=== PATIENT | female | born 1945 | race Caucasian/White ===

== ENCOUNTER 2016-08-06 09:48 | Observation (INO) ==
--- NOTE | 2016-08-06 09:58 | Emergency Department Note ---
Disposition Clinical Impression: Frail elderly, Chest pain, Hyperlipidemia, Hypertension, Cerebrovascular disease, Near syncope, Renal insufficiency Disposition: Admitted As Inpatient Referrals: Kumar Rodriguez Jr, MD [Primary Care Provider] - Forms: ED Satisfaction Letter General Adult HPI - General Chief complaint: ED Syncope Stated complaint: "blacked out this am", CP Time Seen by Provider: 08/06/16 09:57 Source: patient Limitations: no limitations - History of Present Illness HPI Narrative: 70-year-old female reports emergency department with concerns for nearly passing out this morning. She was at the door getting her dog out and then nearly lost consciousness. The patient's been experiencing intermittent chest pain for the last 2 days. There is no history left arm or left jaw pain shortness of breath coughing up blood or leg swelling or pain. The patient does not describe sharp chest pain or pain associated with breathing or activity particularly. She has no personal history of malignancy or DVT or PE history of coronary disease or previous dysrhythmia. The patient takes aspirin but is otherwise not anticoagulated. There is no history of new onset back pain or significant abdominal pain. There has been no difficulty moving the arms or legs independently. No history of slurred speech seizure-like activity or headache. No fever or rash. No cough runny nose and ear pain or sore throat. The patient is not known to be diabetic. She had a remote CVA, she reports she recovered from this and has had no defect status post. The patient does have a history of hyperlipidemia and hypertension. She had remote cardiac testing in the but has not been evaluated since she reports Onset (ago): Just ESTHETICIAN SPA Pain Scale: 2 - Related Data Allergies Allergy/AdvReac Type Severity Reaction Status Date / Time No Known Allergies Allergy Verified 08/06/16 09:50 All systems ED: reviewed and negative except as stated. Past Medical History - Past Medical History Medical history: Reports: CVA, hyperlipidemia, hypertension Psychiatric history: Reports: anxiety, depression - Social History Smoking Status: Former smoker Smokeless Tobacco Status: No Alcohol use: Reports: none Drug use: Reports: none Physical Exam - General Limitations: no limitations General appearance: alert, in no apparent distress - Head Head exam: atraumatic, normocephalic, normal inspection - Eye Eye exam: Present: normal appearance, PERRL, EOMI. Absent: scleral icterus, conjunctival injection, miosis, mydriasis - ENT ENT exam: normal exam, normal oropharynx, mucous membranes moist, TM's normal bilaterally, normal external ear exam - Neck Neck exam: Present: normal inspection, full ROM, trachea midline - Chest Chest inspection: Present: symmetric chest wall rise. Absent: tenderness - Respiratory Respiratory exam: Present: normal lung sounds bilaterally. Absent: respiratory distress - Cardiovascular Cardiovascular exam: Present: regular rate, normal rhythm, normal heart sounds - Abdominal Exam Abdominal exam: Present: soft, Non-Tender, normal bowel sounds. Absent: tenderness, distention, guarding, rebound, rigidity, pulsatile mass - Extremities Exam Extremities exam: Present: normal inspection, full ROM, normal capillary refill. Absent: tenderness, pedal edema, joint swelling, calf tenderness - Expanded Lower Extremity Exam Lower leg exam: Absent: Homans' sign Neurovascular/Tendon exam: Absent: motor deficit, sensory deficit, tendon deficit, extremity cold to touch - Back Exam Back exam: Present: normal inspection, full ROM. Absent: tenderness, CVA tenderness (R), CVA tenderness (L), vertebral tenderness - Neurological Exam Neurological exam: Present: alert, oriented X3, CN II-XII intact. Absent: motor sensory deficit - Psychiatric Psychiatric exam: Present: normal affect, normal mood - Skin Skin exam: Present: warm, dry, intact, normal color. Absent: rash, cyanosis, diaphoresis, erythema, pallor, mottled Course Vital Signs Temperature 97.2 F L 08/06/16 09:50 Pulse Rate 76 08/06/16 09:50 Respiratory Rate 16 08/06/16 09:50 Blood Pressure 103/68 08/06/16 09:50 O2 Sat by Pulse Oximetry 95 08/06/16 09:50 Temperature 97.2 F L 08/06/16 09:50 Pulse Rate 76 08/06/16 09:50 Respiratory Rate 16 08/06/16 09:50 Blood Pressure 103/68 08/06/16 09:50 O2 Sat by Pulse Oximetry 95 08/06/16 09:50 Oxygen Delivery Oxygen Delivery Room Air Medical Decision Making - [facility] Narrative Medical decision making narrative: The patient is elderly, she has a history of hypertension, hyperlipidemia, and CVA, she is describing chest discomfort. The patient has not had any recent cardiac testing. Aspirin was given. The patient had a near syncopal event. Her EKG and cardiac enzymes are negative but her d-dimer is slightly elevated. Based on her symptomatology, chest pain and near syncope, and elevated d-dimer, age, and vascular risk factors, I thought it would be appropriate to consult the hospitalist for hospital observation. The patient is currently stable. IV fluids were given. - Lab Data Lab results reviewed: Yes I reviewed the patient's lab results. Result diagrams: 08/06/16 10:04 08/06/16 10:04 Lab Results 08/06/16 08/06/16 08/06/16 Range/Units 10:04 10:04 10:04 WBC 6.9 (4.3-11.1) K/mcL RBC 4.06 (3.82-4.97) M/mcL Hgb 13.1 (11.5-15.4) g/dL Hct 39.0 (35.3-44.9) % MCV 96.1 (83.0-100.0) fL MCH 32.3 (28.0-33.3) pg MCHC 33.6 (31.6-35.5) g/dL RDW 14.0 (11.5-14.5) % Plt Count 247 (140-400) K/mcL MPV 8.9 L (9.4-12.4) fL Immature Gran % 0.6 (0-4) % Seg Neutrophils % 52.4 % Lymphocytes % 34.3 % Monocytes % 7.2 % Eosinophils % 4.5 % Basophils % 1.0 % Neutrophils # 3.6 (1.6-8.9) K/mcL Lymphocytes # 2.4 (0.6-4.6) K/mcL Monocytes # 0.5 (0.0-1.3) K/mcL Eosinophils # 0.3 (0.0-0.6) K/mcL Basophils # 0.1 (0.0-0.2) K/mcL PT 11.1 (9.4-12.1) Seconds INR 1.0 APTT 26.4 (26.0-36.0) Seconds D-Dimer 595 H (0-500) ng/mLFEU Sodium 140 (136-145) mEq/L Potassium 3.9 (3.5-4.5) mEq/L Chloride 106 (98-109) mEq/L Carbon Dioxide 25 (19-29) mEq/L BUN 30 H (7-20) mg/dL Creatinine 1.60 H (0.57-1.11) mg/dL Est GFR ( Amer) 38 L (> 60) Est GFR (Non-Af Amer) 32 L (> 60) BUN/Creatinine Ratio 19 (6-26) Glucose 83 (70-99) mg/dL Calculated Osmolality 295 (280-300) Lactic Acid (0.5-2.2) mmol/L Calcium 9.6 (8.6-10.8) mg/dL Total Bilirubin 0.8 (0.2-1.2) mg/dL Direct Bilirubin 0.3 (0.0-0.5) mg/dL Indirect Bilirubin 0.5 (0.0-1.2) mg/dL AST 20 (5-34) Units/L ALT 25 (0-55) Units/L Alkaline Phosphatase 123 (38-126) Units/L Troponin I (0-0.03) ng/mL Serum Total Protein 6.8 (6.0-8.3) g/dL Albumin 3.7 (3.5-5.0) g/dL Globulin 3.1 (2.4-3.5) g/dL Albumin/Globulin Ratio 1.2 (1.1-2.2) 08/06/16 08/06/16 Range/Units 10:04 10:04 WBC (4.3-11.1) K/mcL RBC (3.82-4.97) M/mcL Hgb (11.5-15.4) g/dL Hct (35.3-44.9) % MCV (83.0-100.0) fL MCH (28.0-33.3) pg MCHC (31.6-35.5) g/dL RDW (11.5-14.5) % Plt Count (140-400) K/mcL MPV (9.4-12.4) fL Immature Gran % (0-4) % Seg Neutrophils % % Lymphocytes % % Monocytes % % Eosinophils % % Basophils % % Neutrophils # (1.6-8.9) K/mcL Lymphocytes # (0.6-4.6) K/mcL Monocytes # (0.0-1.3) K/mcL Eosinophils # (0.0-0.6) K/mcL Basophils # (0.0-0.2) K/mcL PT (9.4-12.1) Seconds INR APTT (26.0-36.0) Seconds D-Dimer (0-500) ng/mLFEU Sodium (136-145) mEq/L Potassium (3.5-4.5) mEq/L Chloride (98-109) mEq/L Carbon Dioxide (19-29) mEq/L BUN (7-20) mg/dL Creatinine (0.57-1.11) mg/dL Est GFR ( Amer) (> 60) Est GFR (Non-Af Amer) (> 60) BUN/Creatinine Ratio (6-26) Glucose (70-99) mg/dL Calculated Osmolality (280-300) Lactic Acid 0.9 (0.5-2.2) mmol/L Calcium (8.6-10.8) mg/dL Total Bilirubin (0.2-1.2) mg/dL Direct Bilirubin (0.0-0.5) mg/dL Indirect Bilirubin (0.0-1.2) mg/dL AST (5-34) Units/L ALT (0-55) Units/L Alkaline Phosphatase (38-126) Units/L Troponin I 0.00 (0-0.03) ng/mL Serum Total Protein (6.0-8.3) g/dL Albumin (3.5-5.0) g/dL Globulin (2.4-3.5) g/dL Albumin/Globulin Ratio (1.1-2.2) - Radiology Data Radiology results reviewed: Yes I reviewed the patient's radiology results.
[2016-08-06] MEDS ORDERED: 0.9 % Sodium Chloride 1,000 ML IVC ONE (09:59)
[2016-08-06 10:13] LABS: Basophils # 0.1 K/mcL (0.0-0.2); Eosinophils # 0.3 K/mcL (0.0-0.6); Eosinophils % 4.5 %; Hemoglobin 13.1 g/dL (11.5-15.4); Immature Granulocytes % 0.6 % (0-4); Lymphocytes # 2.4 K/mcL (0.6-4.6); Lymphocytes % 34.3 %; Mean Corpuscular HGB Conc 33.6 g/dL (31.6-35.5); Mean Corpuscular Hemoglobin 32.3 pg (28.0-33.3); Mean Corpuscular Volume 96.1 fL (83.0-100.0); Mean Platelet Volume 8.9 fL (9.4-12.4); Monocytes # 0.5 K/mcL (0.0-1.3); Monocytes % 7.2 %; Neutrophils # 3.6 K/mcL (1.6-8.9); Platelet Count 247 K/mcL (140-400); Red Blood Count 4.06 M/mcL (3.82-4.97); Segmented Neutrophils % 52.4 %
[2016-08-06 10:17] LABS: Prothrombin Time 11.1 Seconds (9.4-12.1)
[2016-08-06 10:20] LABS: Activated Partial Thrombo Time 26.4 Seconds (26.0-36.0)
[2016-08-06 10:29] LABS: Albumin 3.7 g/dL (3.5-5.0); Albumin/Globulin Ratio 1.2 (1.1-2.2); Bilirubin,Direct 0.3 mg/dL (0.0-0.5); Bilirubin,Indirect 0.5 mg/dL (0.0-1.2); Bilirubin,Total 0.8 mg/dL (0.2-1.2); Calcium 9.6 mg/dL (8.6-10.8); Globulin 3.1 g/dL (2.4-3.5); Potassium 3.9 mEq/L (3.5-4.5); Total Protein 6.8 g/dL (6.0-8.3)
[2016-08-06] MEDS ORDERED: Aspirin 325 MG TABLET PO ONE (10:50)
[2016-08-06 12:16] LABS: Bilirubin,Urine Negative (Negative); Blood,Urine Negative (Negative); Clarity,Urine Clear (Clear); Color,Urine Yellow (Yellow); Glucose,Urine (UA) Normal (Normal); Ketones,Urine Negative (Negative); Leukocyte Esterase,Urine Negative (Negative); Nitrite,Urine Negative (Negative); Protein,Urine Negative (Neg-Trace); Specific Gravity,Urine 1.008 (1.010-1.025); Urobilinogen,Urine Normal (Normal)
[2016-08-06] MEDS ORDERED: Naloxone 0.4 MG/ML INJ IVP PRN (12:59)
--- NOTE | 2016-08-06 13:22 | Internal Med History&Physical ---
<Tessa Mendieta M - Last Filed: 08/06/16 23:24> Date of Encounter: 08/06/16 Time of Encounter: 13:18 Assessment and Plan (1) Near syncope Current visit: Yes Status: Acute Patient describes episode this morning of blacking out this occurred when she got up from a sitting position to let the dog out. She describes it as everything going black but she did not fall. Head CT negative for acute abnormality, EKG showed normal sinus rhythm. 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 She denies any associated shortness of breath , palpitations, lightheadedness, radiation. He has risk factors that include hypertension, hyperlipidemia, and a prior CVA in 2008. Initial troponin -0.0, EKG showed normal sinus rhythm. 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 Previous value from March 2015 was 1.42. No other values available for comparison. Patient denies any known history of kidney problems, but with previous value of 1.4 to this may be a chronic issue. She takes losartan/hydrochlorothiazide for blood pressure control, she is also on meloxicam chronically for arthritis. We will hold these medications. Urinalysis with micro. Gentle hydration 0.9 normal saline at 75 mL per hour Recheck chemistry in the morning (4) Hyperlipidemia Current visit: Yes Status: Acute Continue home dose of Lipitor Qualifiers: Hyperlipidemia type: unspecified Qualified Code(s): E78.5 - Hyperlipidemia , unspecified (5) Hypertension Current visit: Yes Status: Acute Patient has been taking losartan/hydrochlorothiazide at home. However with creatinine of 1.6, will hold this. Patient is not hypertensive blood pressure has been 103/68 and 123/74. We will monitor vital signs and need for antihypertensive medication. Qualifiers: Hypertension type: essential hypertension Qualified Code(s): I10 - Essential (primary) hypertension (6) DVT prophylaxis Current visit: Yes Status: Acute ambulate with assistance anti-embolic stockings Heparin 5,000u SQ TID Internal Medicine - H&P: HPI Chief complaint: blacked out Admitted From: Emergency Dept Plans for Post Hospital Care: Home History of present illness: Ms. Thomas is a 70 year old female with hypertension, hyperlipidemia, acid reflux, and CVA in 2008% into the emergency department this morning after having an episode of "blacking out. She reports she felt fine this morning got up from sitting to let her dog back in and everything went black. She reports she caught herself on the table and did not fall. After the episode she developed a headache. She also reports occasional chest pain that comes and goes described as a dull ache for the last few days. The chest pain is located at the left side of her chest and does not radiate and is not associated with activity or rest. She denies any recent illness fever or chills, sweats, body aches. She denies any other episodes of lightheadedness, dizziness, faint. Has any palpitations, nausea, vomiting. Evaluation in the emergency department included a CT of the head which was negative for acute intracranial abnormality. EKG showed normal sinus rhythm, chest x-ray showed no acute process. Troponin was negative at 0.0. Blood cell count was normal at 6.9. She had acute kidney injury with creatinine of 1.6 previous creatinine noted in the system in March 2015 was 1.42 she may have an underlying chronic kidney disease but patient denies any awareness of kidney problems. On exam, patient is alert and oriented in no acute distress. Heart has regular rate and rhythm, lungs are clear bilaterally to auscultation. Cranial nerves are intact, she has equal strength bilaterally, no pronator drift, fluid speech. Past Med Surg Social Fam HX - Past Medical History Medical history: CVA, GERD, hyperlipidemia, hypertension Psychiatric history: anxiety, depression - Past Surgical History Surgical History: breast surgery (abscess), , hysterectomy, other ( bladder surgery x 3) - Social History Smoking Status: Former smoker Smokeless Tobacco Status: No Alcohol use: none Drug use: none Internal Medicine - H&P: Meds Alprazolam [Xanax 0.5 MG Tablet] 0.5 mg PO TID PRN 08/06/16 [History] Aspirin [Lo-Dose Aspirin EC] 81 mg PO HS 08/06/16 [History] Atorvastatin [Lipitor] 40 mg PO HS 08/06/16 [History] Citalopram Hydrobromide [Citalopram HBr] 40 mg PO HS 08/06/16 [History] Loratadine [Allergy Relief] 10 mg PO 08/06/16 [History] Losartan/Hydrochlorothiazide [Hyzaar 100-12.5 Tablet] 1 tab PO HS 08/06/16 [ History] Meloxicam [Meloxicam] 15 mg PO HS 08/06/16 [History] Omeprazole [PriLOSEC] 20 mg PO QAM 08/06/16 [History] Trimethoprim [Trimethoprim] 100 mg PO HS 08/06/16 [History] Allergies No Known Allergies Allergy (Verified 08/06/16 09:50) All Systems PM: A 10-system review of systems was performed and is negative for pertinent findings except as documented above in the HPI. - Constitutional Constitutional: no chills, no fever(s), no night sweats - EENT Eyes: no change in vision, no discharge, no pain, no photophobia Ears: no ear discharge, no ear pain, no tinnitus Nose, mouth and throat: no dysphagia, no nasal discharge, no neck pain, no sore throat - Cardiovascular Cardiovascular ROS IM: syncope, no chest pain, no diaphoresis, no dyspnea, no lightheadedness, no palpitations - Respiratory Respiratory: no cough, no dyspnea, no wheezing, no excessive phlegm production - Gastrointestinal Gastrointestinal: no abdominal pain, no diarrhea, no hematemesis, no hematochezia, no melena, no nausea, no vomiting - Genitourinary Genitourinary: urinary incontinence (chronic), no change in urinary stream, no dysuria, no flank pain, no hematuria - Musculoskeletal Musculoskeletal ROS IM: no numbness, no tingling - Integumentary Integumentary IM: no rash, no unusual bruising - Neurological Neurological ROS: headache(s), no confusion, no convulsions, no focal weakness, no numbness, no tingling, no tremor(s) - Hematologic/Lymphatic Hematologic/Lymphatic: no easy bruising - Constitutional Vitals: Temp Pulse Resp BP Pulse Ox 97.2 F L 59 18 123/74 96 08/06/16 09:50 08/06/16 12:16 08/06/16 12:16 08/06/16 12:16 08/06/16 12:16 General appearance: Present: A&O X 3, no acute distress - Head Head exam: Present: atraumatic, normocephalic - Eye Eye exam: Present: PERRL, conjuntiva pink, sclera anicteric Pupils: Present: PERRL - Neck Neck exam general surgery: Present: supple, trachea midline. Absent: lymphadenopathy - Respiratory Respiratory exam: Present: CTAB. Absent: accessory muscle use, rales, rhonchi, wheezes - Cardiovascular Cardiovascular exam: Present: RRR, +S1, +S2. Absent: diastolic murmur, gallop, rubs, systolic murmur - GI/Abdominal GI/Abdominal exam: Present: normal bowel sounds, soft, no peritoneal signs. Absent: distended, tenderness - Extremities Exam Extremities exam: Present: warm, radial pulses palpable and symetrical. Absent : calf tenderness, cyanotic, pedal edema - Neurological Exam Neurological exam: Present: CN II-XII intact, oriented X3, no focal deficits. Absent: pronater drift, facial droop, speech deficit - Skin Skin exam: Present: dry, intact Internal Med - H&P Results - Labs CBC & Chem 7: 08/06/16 10:04 08/06/16 10:04 Labs: Short CBC 08/06/16 Range/Units 10:04 WBC 6.9 (4.3-11.1) K/mcL Hgb 13.1 (11.5-15.4) g/dL Hct 39.0 (35.3-44.9) % Plt Count 247 (140-400) K/mcL Neutrophils # 3.6 (1.6-8.9) K/mcL BMP 08/06/16 10:04 Sodium 140 Potassium 3.9 Chloride 106 Carbon Dioxide 25 BUN 30 H Creatinine 1.60 H Glucose 83 Calcium 9.6 Cardiac Enzymes 08/06/16 Range/Units 10:04 Troponin I 0.00 (0-0.03) ng/mL Liver Function 08/06/16 Range/Units 10:04 Total Bilirubin 0.8 (0.2-1.2) mg/dL Direct Bilirubin 0.3 (0.0-0.5) mg/dL AST 20 (5-34) Units/L ALT 25 (0-55) Units/L Alkaline Phosphatase 123 (38-126) Units/L Albumin 3.7 (3.5-5.0) g/dL Urine 08/06/16 Range/Units 11:55 Urine Color Yellow (Yellow) Urine Clarity Clear (Clear) Urine pH 6.0 (5.0-8.0) pH Units Ur Specific [place] 1.008 L (1.010-1.025) Urine Protein Negative (Neg-Trace) mg/dL Urine Glucose (UA) Normal (Normal) mg/dL - Impressions ITS Impressions Chest X-Ray 08/06/16 10:00 IMPRESSION: No acute process. D/ / Yovani Olson MD / Yovani Olson MD Interpreting Provider: Yovani Olson MD Head CT 08/06/16 10:00 IMPRESSION: No acute intracranial abnormality. D/ / Master Jolly MD / Master Jolly MD Interpreting Provider: Master Jolly MD <Carl Gibson - Last Filed: 08/07/16 08:11> Date of Encounter: 08/07/16 Internal Medicine - H&P: HPI History of present illness: Ms. Thomas is a 71 year old female All Systems PM: A 10-system review of systems was performed and is negative for pertinent findings except as documented above in the HPI. - Constitutional Vitals: Temp Pulse Resp BP Pulse Ox 98.1 F 68 18 108/67 99 08/07/16 07:25 08/07/16 07:25 08/07/16 07:25 08/07/16 07:25 08/07/16 07:25 Internal Med - H&P Results - Labs CBC & Chem 7: 08/06/16 10:04 08/06/16 10:04 Labs: Cardiac Enzymes 08/06/16 08/06/16 Range/Units 16:20 22:01 Troponin I 0.00 0.00 (0-0.03) ng/mL - Attending Attestation I examined this patient and my medical decision-making was reviewed with the Advanced Practice Provider. I agree with the documented findings, disposition and treatment plan as described except to the extent set forth below. On exam she is in no acute distress, speaking full sentences, awake alert oriented 3. Heart is regular S1 and S2 without murmurs. I suspect orthostatic hypotension secondary to antihypertensive medication and dehydration. We will monitor the patient on telemetry. Will provide IV hydration and reassess orthostatic vital signs. Trend troponin to rule out ACS.
[2016-08-06] MEDS: *HR* Heparin 5,000 UNIT/ML VIAL SQ SCH ×2 (15:27→22:44)
[2016-08-06] MEDS: 0.9 % Sodium Chloride 1,000 ML IVC SCH (15:28)
[2016-08-06] MEDS: Aspirin Enteric Coated 81 MG Tablet PO SCH (20:44)
[2016-08-06] MEDS: Loratadine 10 MG TABLET PO SCH (20:45)
[2016-08-06] MEDS: ALPRAZolam 0.5 MG TABLET PO PRN (22:44)
[2016-08-07] MEDS: *HR* Heparin 5,000 UNIT/ML VIAL SQ SCH ×3 (06:04→23:24)
[2016-08-07] MEDS: 0.9 % Sodium Chloride 1,000 ML IVC SCH (06:04)
[2016-08-07 08:07] LABS: Basophils # 0.1 K/mcL (0.0-0.2); Basophils % 0.9 %; Eosinophils # 0.3 K/mcL (0.0-0.6); Eosinophils % 5.1 %; Hematocrit 33.1 % (35.3-44.9); Immature Granulocytes % 0.2 % (0-4); Lymphocytes # 2.2 K/mcL (0.6-4.6); Mean Corpuscular HGB Conc 33.2 g/dL (31.6-35.5); Mean Corpuscular Hemoglobin 32.4 pg (28.0-33.3); Mean Corpuscular Volume 97.6 fL (83.0-100.0); Mean Platelet Volume 9.3 fL (9.4-12.4); Monocytes # 0.3 K/mcL (0.0-1.3); Monocytes % 6.3 %; Neutrophils # 2.4 K/mcL (1.6-8.9); Platelet Count 180 K/mcL (140-400); Red Blood Count 3.39 M/mcL (3.82-4.97); Red Cell Distribution Width 13.8 % (11.5-14.5); Segmented Neutrophils % 45.5 %
[2016-08-07 08:12] LABS: Potassium 4.2 mEq/L (3.5-4.5)
[2016-08-07 08:13] LABS: Calcium 8.6 mg/dL (8.6-10.8)
--- NOTE | 2016-08-07 12:38 | ECHO - Doppler Report ---
Echocardiogram Name: Jacinta Thomas Date of Study: 08/07/2016 Date: 1945 Ht: 65.0 in Medical Record#: [id number] Age: 71 Wt: 170.0 lb Gender: Female BSA: 1.85 Order #: [id number] Location: [facility] Room #: [id number] Reading Physician: Yennifer Cervantes DO [employer] Manager: Amy Ramírez Ordering Physician: Tessa Mendieta CNP Primary Physician: Kumar Rodriguez MD Indications: Syncope Impressions: LVEF 60-65%. Normal left ventricular size and systolic function. There is evidence of mild diastolic dysfunction of the left ventricle. Normal right ventricular size and function. Mild tricuspid regurgitation. No pulmonary hypertension. Left Ventricular Wall Motion: Rest Echo Findings All wall segments showed normal motion. Findings: Study Quality * Technically adequate exam. ECG Findings * Normal sinus rhythm. Left Ventricle * LVEF 60-65%. * Normal LV chamber size, wall thickness and function. * Mild left ventricular diastolic dysfunction. Left Atrium * Normal left atrial size. Mitral Valve * Normal mitral valve structure. * No mitral stenosis. * Trace mitral regurgitation. Aortic Valve * Aortic valve not well visualized. * No aortic stenosis. * Trace aortic regurgitation. Tricuspid Valve * Tricuspid valve not well visualized. * Mild tricuspid regurgitation. Pulmonic Valve * Pulmonic valve is not well visualized. * No pulmonic stenosis. * No pulmonic regurgitation. Pulmonary Artery * Pulmonary artery not well visualized. Right Ventricle * Normal right ventricular structure and function. Right Atrium * Normal right atrial size. Interatrial Septum * No evidence of PFO by color Doppler. IVC * The IVC is not well evaluated. Pericardium * There is no pericardial effusion present. History Hypertension Hypercholesteremia Years 20 Packs 2 Measurements: BP: 98/ 62 2D Normal Values IVSd: 1.00 cm 0.6 - 1.0 cm LVIDd: 4.30 cm 3.7 - 5.6 cm LVPWd: 1.00 cm 0.6 - 1.1 cm LVIDs: 2.40 cm 1.5 - 3.6 cm AO: 2.60 cm < 4.0 cm LA: 3.90 cm 2.0 - 4.0cm %FS: 44.20 cm >25 % LA volume: 45 Mitral Valve Peak E:.62 m/sec Peak A:.77 m/sec E/A Ratio:0.8 Peak E' Lat Sawyer:6.82 cm/s Peak E' Med Sawyer:6.14 cm/s E/E' Lat Ratio:9 E/E' Med Ratio:10 Aortic Valve AI pressure Half-time: 935.00 msec Tricuspid Valve TV Regurg Peak Grad: 21.00mmHg TV Regurg Peak Sawyer: 2.28m/sec Updated by Yennifer Cervantes on 08/07/2016 12:30:04 PM electronically signed on 08/07/2016 12:31:46 PM with status of Final Wall [employer] Jeffries: 1=Normal, 2=Hypokinesis, 3=Akinesis, 4=Dyskinesis, 5=Aneurysmal, 6=Hyperkinetic, X=Not Visualized (Blank)=Missing
--- NOTE | 2016-08-07 14:02 | Electrocardiograph Report ---
[address] [address] Test Date: 2016-08-06 Pat Name: Jacinta Thomas Department: 103 Room: 3B Gender: F Sound Editor: : 1945 Requested By: Cm Gonzalez Order Number: [id number] Reading MD: Yennifer Cervantes Measurements Intervals [place] Rate: 70 P: 45 CT: 180 QRS: 28 QRSD: 102 T: 28 QT: 379 QTc: 400 Interpretive Statements SINUS RHYTHM Electronically Signed On 08-07-2016 14:00:27 EST by Yennifer Cervantes
--- NOTE | 2016-08-07 17:25 | Internal Med Progress Note ---
Date of Encounter: 08/07/16 Time of Encounter: 13:10 - Assessment and plan (1) Near syncope Current Visit: Yes Status: Acute Assessment and plan: Head CT negative for acute abnormality, EKG showed normal sinus rhythm.ECHO noted Carotid doppler pending, no bruit on exam Possibly secondary to dehydration based on renal function that has improved with hydration this morning Follow renal USS and Carotid doppler (2) Renal insufficiency Current Visit: Yes Status: Acute Assessment and plan: Cr 1.60 on admisison, 1.2 this a.m. GFR improved ECHO nted for mild LVDD, d/c IVF Encourage liberal oral intake No hcx of renal stones Obtain Renal USS (3) Chest pain Current Visit: Yes Status: Acute Assessment and plan: Atypical chest pain But patient with risk factors that include hypertension, hyperlipidemia, and a prior CVA in 2008. EKG showed normal sinus rhythm. Troponin negative X3 ECHO report shows LVEF 60-65%, mild LVDD, Normal RV, Mild TR, NO Pulm HTN, NO WMA Qualifiers: Chest pain type: precordial pain Qualified Code(s): R07.2 - Precordial pain (4) Hypertension Current Visit: Yes Status: Chronic Assessment and plan: COntrolled, continue home meds Qualifiers: Hypertension type: essential hypertension Qualified Code(s): I10 - Essential (primary) hypertension (5) Hyperlipidemia Current Visit: Yes Status: Chronic Assessment and plan: Continue home meds Qualifiers: Hyperlipidemia type: unspecified Qualified Code(s): E78.5 - Hyperlipidemia , unspecified - Subjective Interval history: 71 Y/O F with PMH of HTN, HLD, GERD Patient is being managed for pre-syncope, chest pain, suspected DES She is seen at bedside Chart reviewed, labs and imaging reviewed Patient denies history of CKD, only available renal function per chart shows Elevated CR with decreased GFR. She reports poor oral intake but denies changes in urinary habits or volume She is pending ECHO/Carotid report and a retroperitoneum USS - Constitutional Vitals: Temp Pulse Resp BP Pulse Ox 98.4 F 69 17 127/74 93 L 08/07/16 15:35 08/07/16 15:35 08/07/16 15:35 08/07/16 15:35 08/07/16 15:35 General appearance: Present: A&O X 3, pleasant, no acute distress - Head Head exam: Present: atraumatic, normocephalic - Eye Eye exam: Present: PERRL, conjuntiva pink, sclera anicteric Pupils: Present: PERRL - Neck Neck exam general surgery: Present: supple, trachea midline. Absent: lymphadenopathy - Respiratory Respiratory exam: Present: CTAB. Absent: accessory muscle use, rales, rhonchi, wheezes - Cardiovascular Cardiovascular exam: Present: RRR, +S1, +S2. Absent: diastolic murmur, gallop, rubs, systolic murmur - GI/Abdominal GI/Abdominal exam: Present: normal bowel sounds, soft, no peritoneal signs. Absent: distended, tenderness - Extremities Exam Extremities exam: Present: warm, radial pulses palpable and symetrical. Absent : calf tenderness, cyanotic, pedal edema - Neurological Exam Neurological exam: Present: CN II-XII intact, oriented X3, no focal deficits. Absent: pronater drift, facial droop, speech deficit - Skin Skin exam: Present: dry, intact Internal Medicine: Result - Labs CBC & Chem 7: 08/07/16 07:17 08/07/16 07:17 Labs: Short CBC 08/07/16 Range/Units 07:17 WBC 5.3 (4.3-11.1) K/mcL Hgb 11.0 L D (11.5-15.4) g/dL Hct 33.1 L (35.3-44.9) % Plt Count 180 (140-400) K/mcL Neutrophils # 2.4 (1.6-8.9) K/mcL BMP 08/07/16 07:17 Sodium 141 Potassium 4.2 Chloride 113 H Carbon Dioxide 23 BUN 23 H Creatinine 1.20 H Glucose 84 Calcium 8.6 Cardiac Enzymes 08/06/16 Range/Units 22:01 Troponin I 0.00 (0-0.03) ng/mL - ABG Interpretation ABG results: PT/INR, D-dimer PT 11.1 Seconds (9.4-12.1) 08/06/16 10:04 D-Dimer 595 ng/mLFEU (0-500) H 08/06/16 10:04 - VTE Documentation of Mechanical Device: Graduated compression elastic hosiery Consult Discharge Plan - Plan Referrals: Kumar Rodriguez Jr, MD [Primary Care Provider] -
[2016-08-07] MEDS: ALPRAZolam 0.5 MG TABLET PO PRN ×2 (18:18→21:21)
--- NOTE | 2016-08-07 18:27 | Carotid Imaging Report ---
Carotid Duplex Patient Name:Jacinta Thomas Order Number:[id number] Procedure Date:08/07/2016 Date:4Age:71 yrs Gender:Female Lt BP:98 / 62 mmHg Rt.BP:98 / 62 mmHgHeart Rate: Location:[facility] Room #: 3B41 Retail Coordinator:Amy Ramírez Referring MD:Tessa Mendieta CNP director of blood:Kumar Rodriguez MD Reading MD:Castillo Ocampo MD , FACS Primary Indications:Syncope Risk Factors Yes/No Hypertension Hypercholesterolemia Hx of CVA Smoker Previous Impressions: Findings: Bilateral carotid systems are essentially normal. Findings Carotid Duplex: Right: There is nonstenotic plaque in the right bifurcation. There is smooth homogeneous plaque. Prior Study: No prior study available for comparison. Carotid Results Right PSV EDV Assessment Proximal CCA 63 17 Normal Mid CCA 94 24 Normal Distal CCA 82 25 Normal Bifurcation 70 23 Non Stenotic Plaque Proximal ICA 70 23 Normal Mid ICA 82 31 Normal Distal ICA 66 24 Normal ECA 97 18 Normal Vertebral Artery 59 17 Antegrade Flow Left PSV EDV Assessment Proximal CCA 92 24 Normal Mid CCA 74 19 Normal Distal CCA 73 23 Normal Bifurcation 75 21 Normal Proximal ICA 78 29 Normal Mid ICA 99 40 Normal Distal ICA 59 14 Normal ECA 72 9 Normal Vertebral Artery 68 24 Antegrade Flow Ratio's Right ICA/CCA Ratio: 0.87 ICA/CCA Values: 82/94 Left ICA/CCA Ratio: 1.34 ICA/CCA Values: 99/74 Updated by Castillo Ocampo MD, FACS on 08/07/2016 6:21:01 PM Castillo Ocampo MD electronically signed on 08/07/2016 6:21:39 PM with status of Final
[2016-08-07] MEDS: Loratadine 10 MG TABLET PO SCH (21:20)
[2016-08-07] MEDS: Aspirin Enteric Coated 81 MG Tablet PO SCH (21:21)
[2016-08-08] MEDS: *HR* Heparin 5,000 UNIT/ML VIAL SQ SCH (06:34)
[2016-08-08 09:06] LABS: Calcium 9.2 mg/dL (8.6-10.8); Potassium 4.3 mEq/L (3.5-4.5)
[2016-08-08 11:33] VITALS: BP 117/80
--- NOTE | 2016-08-08 14:58 | Discharge Summary ---
Date of Encounter: 08/08/16 Time of Encounter: 12:40 - Discharge Diagnosis (1) Acute on chronic renal failure Priority: Primary Status: Acute (2) Near syncope Priority: Primary Status: Resolved (3) Chest pain Priority: Primary Status: Resolved Qualifiers: Chest pain type: precordial pain Qualified Code(s): R07.2 - Precordial pain (4) Hypertension Priority: Secondary Status: Chronic Qualifiers: Hypertension type: essential hypertension Qualified Code(s): I10 - Essential (primary) hypertension (5) Hyperlipidemia Priority: Secondary Status: Chronic Qualifiers: Hyperlipidemia type: unspecified Qualified Code(s): E78.5 - Hyperlipidemia , unspecified - Discharge Medications Home Medications: Alprazolam [Xanax 0.5 MG Tablet] 0.5 mg PO TID PRN 08/06/16 [History] Aspirin [Lo-Dose Aspirin EC] 81 mg PO HS 08/06/16 [History] Atorvastatin [Lipitor] 40 mg PO HS 08/06/16 [History] Citalopram Hydrobromide [Citalopram HBr] 40 mg PO HS 08/06/16 [History] Loratadine [Allergy Relief] 10 mg PO HS 08/06/16 [History] Losartan/Hydrochlorothiazide [Hyzaar 100-12.5 Tablet] 1 tab PO HS 08/06/16 [ History] Meloxicam [Meloxicam] 15 mg PO HS 08/06/16 [History] Omeprazole [PriLOSEC] 20 mg PO QAM 08/06/16 [History] Trimethoprim [Trimethoprim] 100 mg PO HS 08/06/16 [History] Allergies/Adverse Reactions: Allergies No Known Allergies Allergy (Verified 08/06/16 09:50) Procedures/tests Complete & Pending: Procedures Performed prior 72 hours Category Date Time Status US retroperitoneal comp [US] Routine Exams 08/08/16 14:00 Draft Date of admission: 08/06/16 13:56 Primary care physician: Kumar Rodriguez Jr, MD Discharging clinician: David Lopez Anticipated date of discharge: 08/08/16 - Patient Status Disposition: Home, Self-Care Condition: Good Functional capacity at discharge: independent ambulation Overall status at discharge: patient is progressing back to baseline - Discharge Instructions Follow Up With: Kumar Rodriguez Jr, MD [Primary Care Provider] - 08/12/16 2:30 pm - Diet and Activity Activity: resume usual activities as tolerated Diet: low fat, low cholesterol, low salt diet Interval History: See below Hospital course: 71 Y/O F with PMH of HTN, HLD, GERD Patient was admitted for management of pre-syncope, chest pain and DES on CKD Her presyncope was possibly due to dehydration and low blood pressure She has had normal Blood pressure throughout her hospitalization but was on Losartan/HCTZ at home Headt CT, carotid Doppler all negative for acute findings Chest pain was atypical with EKG showed normal sinus rhythm. Troponin negative X3 ECHO report shows LVEF 60-65%, mild LVDD, Normal RV, Mild TR, NO Pulm HTN, NO WMA Renal USS showed evidence of CKD Patient also on Meloxicam at home, discontinued Her symptoms have since resolved with IVF hydration and liberal fluid intake, her renal function has improved She is discharged to follow up with PCP with education about hospital course - Time Spent with Patient Total time spent providing and/or coordinating discharge services: Less than 30 minutes - Constitutional Vitals: Temp Pulse Resp BP Pulse Ox 98.5 F 61 17 117/80 96 08/08/16 11:30 08/08/16 11:30 08/08/16 11:30 08/08/16 11:30 08/08/16 11:30 General appearance: Present: A&O X 3, pleasant, no acute distress - Head Head exam: Present: atraumatic, normocephalic - Eye Eye exam: Present: PERRL, conjuntiva pink, sclera anicteric Pupils: Present: PERRL - Neck Neck exam general surgery: Present: supple, trachea midline. Absent: lymphadenopathy - Respiratory Respiratory exam: Present: CTAB. Absent: accessory muscle use, rales, rhonchi, wheezes - Cardiovascular Cardiovascular exam: Present: RRR, +S1, +S2. Absent: diastolic murmur, gallop, rubs, systolic murmur - GI/Abdominal GI/Abdominal exam: Present: normal bowel sounds, soft, no peritoneal signs. Absent: distended, tenderness - Extremities Exam Extremities exam: Present: warm, radial pulses palpable and symetrical. Absent : calf tenderness, cyanotic, pedal edema - Neurological Exam Neurological exam: Present: CN II-XII intact, oriented X3, no focal deficits. Absent: pronater drift, facial droop, speech deficit - Skin Skin exam: Present: dry, intact - VTE Documentation of Mechanical Device: Graduated compression elastic hosiery
== END 2016-08-08 15:50 | disposition home or self-care (01) ==
LOC: 3BNU 09:48 → EMEROO 09:48 → SUATTDRO 13:56 → 3BNU 14:26
PROVIDERS: ADMIT Internal Medicine; ATTEND Internal Medicine

== ENCOUNTER 2016-09-26 09:47 | Observation (INO) ==
--- NOTE | 2016-09-26 10:15 | Emergency Department Note ---
START Narrative - START START: For this encounter, I have reviewed the PRINTING AGENT or PA documentation, treatment plan, and medical decision making; and I have had face to face time with this patient. Patient in the emergency department complaining of difficulty speaking. Patient states she was having trouble naming objects. This started after she awoke this morning around 7:30 or 8. It is since resolved. States now she just feels nauseated. She has a history of a stroke in the past but states the symptoms were different. She denies any numbness and tingling in arms or legs. On examination she is awake and alert. NIH scale was 0. Speaking clearly. Able to name objects that I show her. Plan. Patient likely had a TIA. Stroke workup likely admit. Patient admitted to medicine. Dr. Rosales accepts at 11:30.
[2016-09-26 10:30] LABS: Basophils # 0.1 K/mcL (0.0-0.2); Basophils % 1.2 %; Eosinophils # 0.3 K/mcL (0.0-0.6); Eosinophils % 5.2 %; Hematocrit 35.6 % (35.3-44.9); Hemoglobin 11.7 g/dL (11.5-15.4); Immature Granulocytes % 0.4 % (0-4); Lymphocytes # 1.6 K/mcL (0.6-4.6); Lymphocytes % 33.6 %; Mean Corpuscular HGB Conc 32.9 g/dL (31.6-35.5); Mean Corpuscular Hemoglobin 32.2 pg (28.0-33.3); Mean Corpuscular Volume 98.1 fL (83.0-100.0); Mean Platelet Volume 8.8 fL (9.4-12.4); Monocytes # 0.3 K/mcL (0.0-1.3); Monocytes % 5.8 %; Neutrophils # 2.6 K/mcL (1.6-8.9); Platelet Count 271 K/mcL (140-400); Red Blood Count 3.63 M/mcL (3.82-4.97); Red Cell Distribution Width 14.4 % (11.5-14.5); Segmented Neutrophils % 53.8 %
[2016-09-26 10:38] LABS: Prothrombin Time 11.3 Seconds (9.4-12.1)
[2016-09-26 10:41] LABS: Activated Partial Thrombo Time 25.7 Seconds (26.0-36.0)
[2016-09-26 10:43] LABS: Calcium 9.5 mg/dL (8.6-10.8); Potassium 4.4 mEq/L (3.5-4.5)
--- NOTE | 2016-09-26 10:50 | Emergency Department Note ---
Disposition Clinical Impression: T wave inversion in EKG Transient cerebral ischemic attack, unspecified Qualifiers: Transient cerebral ischemia type: unspecified Qualified Code(s): G45.9 - Transient cerebral ischemic attack, unspecified Disposition: Admitted As Inpatient Condition: Good Neuro HPI - General Chief Complaint: ED Neuro Symptoms/Deficit Stated Complaint: i think i had a mild stroke Time Seen by Provider: 09/26/16 09:52 Source: patient Mode of arrival: private vehicle Limitations: no limitations Nursing Notes Reviewed: Yes Vital Signs Reviewed: Yes - History of Present Illness Onset of Symptoms Date: 09/26/16 Onset of Symptoms Time: 07:30 Symptom Onset Unknown: No Location: speech History of same: No (Hx of TIA in 2003, but symptoms were different - N/V/ confusion then) Severity: now resolved (No longer having any dysarthia) Quality: other ("trouble with word recognition") Symptoms Improving: Yes Improves with: time Worsens with: none Context: gradual onset On Anticoagulants: No Associated symptoms: Reports: nausea/vomiting (nausea only), weakness ( generalized). Denies: confusion, chest pain, cough, diaphoresis, fever/chills, headaches, loss of appetite, malaise, vertigo, seizures, shortness of breath, syncope Treatments Prior to Arrival: none - Related Data Home Medications: Home Medications Medication Instructions Recorded Confirmed Alprazolam [Xanax 0.5 MG Tablet] 0.5 mg PO TID PRN 08/06/16 08/06/16 Aspirin [Lo-Dose Aspirin EC] 81 mg PO HS 08/06/16 08/06/16 Atorvastatin [Lipitor] 40 mg PO 08/06/16 08/06/16 Citalopram Hydrobromide 40 mg PO 08/06/16 08/06/16 [Citalopram HBr] Loratadine [Allergy Relief] 10 mg PO HS 08/06/16 08/06/16 Omeprazole [PriLOSEC] 20 mg PO QAM 08/06/16 08/06/16 Trimethoprim 100 mg PO 08/06/16 08/06/16 Allergies/Adverse Reactions: Allergies Allergy/AdvReac Type Severity Reaction Status Date / Time No Known Allergies Allergy Verified 08/06/16 09:50 All systems ED: reviewed and negative except as stated. Constitutional: Denies: fever, chills, weakness Eyes: Denies: eye pain, eye discharge, vision change ENT ED: Denies: ear pain, throat pain, congestion, dysphagia Cardiovascular: Denies: chest pain, palpitations, dyspnea on exertion, orthopnea , edema, syncope Respiratory: Denies: cough, dyspnea, wheezes, hemoptysis, stridor Gastrointestinal: Reports: nausea. Denies: abdominal pain, vomiting, diarrhea, constipation Musculoskeletal: Denies: back pain, neck pain, joint swelling Integumentary: Denies: rash, abrasion, lesions Neurological: Reports: weakness (generalized). Denies: headache, numbness, paresthesias, abnormal gait Hematological/Lymphatic: Denies: easy bleeding, easy bruising Past Medical History - Past Medical History Attestation: Yes The following information was validated with the patient. Source: patient Medical history: Reports: CVA, GERD, hyperlipidemia, hypertension Surgical history: Reports: breast surgery (abscess), , hysterectomy, other (bladder surgery x 3) Psychiatric history: Reports: anxiety, depression - Social History Smoking Status: Former smoker Smokeless Tobacco Status: No Alcohol use: Reports: none Drug use: Reports: none Physical Exam - General Limitations: no limitations General appearance: alert, in no apparent distress - Head Head exam: atraumatic, normocephalic, normal inspection - Eye Eye exam: Present: normal appearance, PERRL, EOMI. Absent: scleral icterus, conjunctival injection, nystagmus, miosis, mydriasis, periorbital swelling - ENT ENT exam: normal exam, normal oropharynx, mucous membranes moist - Neck Neck exam: Present: normal inspection, full ROM, trachea midline. Absent: tenderness, meningismus, lymphadenopathy - Chest Chest inspection: Present: normal inspection, symmetric chest wall rise - Respiratory Respiratory exam: Present: normal lung sounds bilaterally. Absent: respiratory distress, wheezes, stridor, accessory muscle use, prolonged expiratory phase - Cardiovascular Cardiovascular exam: Present: regular rate, normal rhythm, normal heart sounds - Extremities Exam Extremities exam: Present: normal inspection, full ROM. Absent: pedal edema - Expanded Lower Extremity Exam Gait: observed and normal - Back Exam Back exam: Present: normal inspection, full ROM. Absent: tenderness - Neurological Exam Neurological exam: Present: alert, oriented X3, CN II-XII intact, normal gait, reflexes normal. Absent: motor sensory deficit - Psychiatric Psychiatric exam: Present: normal affect, normal mood - Skin Skin exam: Present: warm, dry, intact, normal color Course Course Narrative: Patient presents from home with her grandson for evaluation of "trouble with word finding." Patient states that she was fine last night and seemed like she was fine when she got up around 4 AM to use the restroom, and then she got up around seven and went downstairs - still feeling okay. Shortly after that she noticed she was having trouble with the names of common objects. She states, " I would look at an object and know what it was, but would not be able to say what it was." She states that this continued for an hour, but she went on to shower and dress. She then went to the [employer]. She noticed that it was still going on, so she thought she should come be evaluated. She denies word finding difficulty at this time. She states that she now feels a little nauseated and a little weak all over. She denies unilateral weakness, confusion , chest pain, shortness of breath, abdominal pain, or any other complaints. On exam, she is very calm, polite and cooperative. Her NIH stroke scale score is zero. CT, labs, EKG and x-ray of then ordered. Case was discussed immediately with the attending physician, Dr. Mcnulty. She confirms that the patient does not meet criteria for a stroke alert. She agrees with the plan and has gone in to see the patient. As the patient's neurologic symptoms have resolved, she does not meet criteria for TPA. Patient's CT of the head shows no acute abnormality. She is now asymptomatic. Her sodium is low and creatinine is a little high. However, she has history of chronic kidney disease. She will require admission for further evaluation of her previous neurologic symptoms. - Reevaluation(s) Reevaluation #1: Patient states that she is feeling better. Her nausea is gone. She denies any symptoms at this time. We discussed the need for admission. She understands this and is agreeable with the plan. Time: 11:18 Vital Signs Temperature 98.3 F 09/26/16 09:52 Pulse Rate 67 09/26/16 09:52 Respiratory Rate 16 09/26/16 09:52 Blood Pressure 134/79 09/26/16 09:52 O2 Sat by Pulse Oximetry 97 09/26/16 09:52 Temperature 98.3 F 09/26/16 09:52 Pulse Rate 67 09/26/16 09:52 Respiratory Rate 16 09/26/16 09:52 Blood Pressure 134/79 09/26/16 09:52 O2 Sat by Pulse Oximetry 95 09/26/16 10:09 Oxygen Delivery Oxygen Delivery Room Air Neuro Symptoms/Deficit - Medical Records Medical records reviewed: Yes I reviewed the patient's medical records. - Lab Data Lab results reviewed: Yes I reviewed the patient's lab results. Lab results narrative: Laboratory Last Values WBC 4.9 K/mcL (4.3-11.1) 09/26/16 10:21 RBC 3.63 M/mcL (3.82-4.97) L 09/26/16 10:21 Hgb 11.7 g/dL (11.5-15.4) 09/26/16 10:21 Hct 35.6 % (35.3-44.9) 09/26/16 10:21 MCV 98.1 fL (83.0-100.0) 09/26/16 10:21 MCH 32.2 pg (28.0-33.3) 09/26/16 10:21 MCHC 32.9 g/dL (31.6-35.5) 09/26/16 10:21 RDW 14.4 % (11.5-14.5) 09/26/16 10:21 Plt Count 271 K/mcL (140-400) 09/26/16 10:21 MPV 8.8 fL (9.4-12.4) L 09/26/16 10:21 Immature Gran % 0.4 % (0-4) 09/26/16 10:21 Seg Neutrophils % 53.8 % 09/26/16 10:21 Lymphocytes % 33.6 % 09/26/16 10:21 Monocytes % 5.8 % 09/26/16 10:21 Eosinophils % 5.2 % 09/26/16 10:21 Basophils % 1.2 % 09/26/16 10:21 Neutrophils # 2.6 K/mcL (1.6-8.9) 09/26/16 10:21 Lymphocytes # 1.6 K/mcL (0.6-4.6) 09/26/16 10:21 Monocytes # 0.3 K/mcL (0.0-1.3) 09/26/16 10:21 Eosinophils # 0.3 K/mcL (0.0-0.6) 09/26/16 10:21 Basophils # 0.1 K/mcL (0.0-0.2) 09/26/16 10:21 PT 11.3 Seconds (9.4-12.1) 09/26/16 10:21 INR 1.0 09/26/16 10:21 APTT 25.7 Seconds (26.0-36.0) L 09/26/16 10:21 Sodium 141 mEq/L (136-145) 09/26/16 10:21 Potassium 4.4 mEq/L (3.5-4.5) 09/26/16 10:21 Chloride 111 mEq/L (98-109) H 09/26/16 10:21 Carbon Dioxide 20 mEq/L (19-29) 09/26/16 10:21 BUN 17 mg/dL (7-20) 09/26/16 10:21 Creatinine 1.15 mg/dL (0.57-1.11) H 09/26/16 10:21 Est GFR ( Amer) 56 (> 60) L 09/26/16 10:21 Est GFR (Non-Af Amer) 46 (> 60) L 09/26/16 10:21 BUN/Creatinine Ratio 15 (6-26) 09/26/16 10:21 Glucose 96 mg/dL (70-99) 09/26/16 10:21 Calculated Osmolality 293 (280-300) 09/26/16 10:21 Calcium 9.5 mg/dL (8.6-10.8) 09/26/16 10:21 Troponin I 0.01 ng/mL (0-0.03) 09/26/16 10:21 Result diagrams: 09/26/16 10:21 09/26/16 10:21 Lab Results 09/26/16 09/26/16 09/26/16 Range/Units 10:21 10:21 10:21 WBC 4.9 (4.3-11.1) K/mcL RBC 3.63 L (3.82-4.97) M/mcL Hgb 11.7 (11.5-15.4) g/dL Hct 35.6 (35.3-44.9) % MCV 98.1 (83.0-100.0) fL MCH 32.2 (28.0-33.3) pg MCHC 32.9 (31.6-35.5) g/dL RDW 14.4 (11.5-14.5) % Plt Count 271 (140-400) K/mcL MPV 8.8 L (9.4-12.4) fL Immature Gran % 0.4 (0-4) % Seg Neutrophils % 53.8 % Lymphocytes % 33.6 % Monocytes % 5.8 % Eosinophils % 5.2 % Basophils % 1.2 % Neutrophils # 2.6 (1.6-8.9) K/mcL Lymphocytes # 1.6 (0.6-4.6) K/mcL Monocytes # 0.3 (0.0-1.3) K/mcL Eosinophils # 0.3 (0.0-0.6) K/mcL Basophils # 0.1 (0.0-0.2) K/mcL PT 11.3 (9.4-12.1) Seconds INR 1.0 APTT 25.7 L (26.0-36.0) Seconds Sodium 141 (136-145) mEq/L Potassium 4.4 (3.5-4.5) mEq/L Chloride 111 H (98-109) mEq/L Carbon Dioxide 20 (19-29) mEq/L BUN 17 (7-20) mg/dL Creatinine 1.15 H (0.57-1.11) mg/dL Est GFR ( Amer) 56 L (> 60) Est GFR (Non-Af Amer) 46 L (> 60) BUN/Creatinine Ratio 15 (6-26) Glucose 96 (70-99) mg/dL Calculated Osmolality 293 (280-300) Calcium 9.5 (8.6-10.8) mg/dL Troponin I (0-0.03) ng/mL 09/26/16 Range/Units 10:21 WBC (4.3-11.1) K/mcL RBC (3.82-4.97) M/mcL Hgb (11.5-15.4) g/dL Hct (35.3-44.9) % MCV (83.0-100.0) fL MCH (28.0-33.3) pg MCHC (31.6-35.5) g/dL RDW (11.5-14.5) % Plt Count (140-400) K/mcL MPV (9.4-12.4) fL Immature Gran % (0-4) % Seg Neutrophils % % Lymphocytes % % Monocytes % % Eosinophils % % Basophils % % Neutrophils # (1.6-8.9) K/mcL Lymphocytes # (0.6-4.6) K/mcL Monocytes # (0.0-1.3) K/mcL Eosinophils # (0.0-0.6) K/mcL Basophils # (0.0-0.2) K/mcL PT (9.4-12.1) Seconds INR APTT (26.0-36.0) Seconds Sodium (136-145) mEq/L Potassium (3.5-4.5) mEq/L Chloride (98-109) mEq/L Carbon Dioxide (19-29) mEq/L BUN (7-20) mg/dL Creatinine (0.57-1.11) mg/dL Est GFR ( Amer) (> 60) Est GFR (Non-Af Amer) (> 60) BUN/Creatinine Ratio (6-26) Glucose (70-99) mg/dL Calculated Osmolality (280-300) Calcium (8.6-10.8) mg/dL Troponin I 0.01 (0-0.03) ng/mL - Radiology Data Radiology results reviewed: Yes I reviewed the patient's radiology results. Chest X-Ray 09/26/16 10:13 IMPRESSION: No acute abnormality. D/ / 09/26/2016 11:05:33 Bertrand Barker MD / Luciana Hagen Interpreting Provider: Bertrand Barker MD Head CT 09/26/16 10:13 IMPRESSION: 1. No acute intracranial abnormality. D/ / Braxton Delong MD / Braxton Delong MD Interpreting Provider: Braxton Delong MD - EKG Data EKG attestation: Yes I reviewed and interpreted this EKG. EKG shows normal: sinus rhythm Rate: normal Rhythm: NSR [place]/QRS: normal T wave inversions noted in: III, v3 When compared to previous EKG there are: changes noted (biphasic t-waves in v3; new c/w 08/06/16) Interpretation: nonspecific ST-T wave changes NIH Stroke Scale - Level of Consciousness LOC: Alert - LOC Questions LOC Questions: Answers both correctly - LOC Commands LOC Commands: Performs both correctly - Best Gaze Best Gaze: Normal - Visual Visual: No visual loss - Facial Palsy Facial Palsy: Normal - Motor Arms Motor Arm-Left: No drift for 10 seconds Motor Arm-Right: No drift for 10 seconds - Motor Legs Motor Leg-Left: No drift for 5 seconds Motor Leg-Right: No drift for 5 seconds - Limb Ataxia Limb Ataxia: Normal, No Ataxia - Sensory Sensory: Normal - Best Language Best Language: No aphasia - Dysarthria Dysarthria: Normal - Extinction and Inattention Extinction and Inattention: Normal - NIHSS Total Score NIHSS Total Score: 0 TPA Checklist - Relative Contraindications 19. Only minor or rapidly improving stroke symptoms: Yes - LKW: 3-4.5 hrs Add. Contraindications Patient/family understanding: The patient/family members have been counseled and understood the risk, benefit , and alternatives of treatment.
[2016-09-26] MEDS ORDERED: Aspirin 81 MG TAB.CHEW PO ONE (11:10)
[2016-09-26] MEDS ORDERED: Naloxone 0.4 MG/ML INJ IVP PRN (12:50)
[2016-09-26 13:13] LABS: Bilirubin,Urine Negative (Negative); Blood,Urine Negative (Negative); Clarity,Urine Clear (Clear); Color,Urine Yellow (Yellow); Glucose,Urine (UA) Normal (Normal); Ketones,Urine Negative (Negative); Leukocyte Esterase,Urine Small (Negative); Nitrite,Urine Negative (Negative); Protein,Urine Negative (Neg-Trace); Specific Gravity,Urine 1.012 (1.010-1.025); Urobilinogen,Urine Normal (Normal)
[2016-09-26 13:15] LABS: Bacteria,Urine None Seen per hpf (None-Few); Hyaline Casts,Urine None Seen per lpf (None-Few); RBC,Urine 0-3 per hpf (0-3); Squamous Epithelial Cell,Urine Many per lpf (None-Few)
--- NOTE | 2016-09-26 14:35 | Internal Med History&Physical ---
Date of Encounter: 09/26/16 Time of Encounter: 14:32 Assessment and Plan (1) Expressive aphasia Current visit: Yes Status: Acute We will observe the patient overnight in hospital. Will get MRI of the brain tomorrow. Workup for possible underlying TIA. She is already had 2-D echocardiogram and carotid Dopplers done last month which showed a normal ejection fraction and normal bilateral carotid arteries. We will check lipid profile and A1c levels. Continue aspirin and statin. (2) Hyperlipidemia Current visit: No Status: Chronic Check lipid profile. Continue aspirin and statin Qualifiers: Hyperlipidemia type: mixed hyperlipidemia Qualified Code(s): E78.2 - Mixed hyperlipidemia (3) Hypertension Current visit: No Status: Chronic Blood pressure was elevated on initial presentation but is now better. We will resume home medications for this condition Qualifiers: Hypertension type: essential hypertension Qualified Code(s): I10 - Essential (primary) hypertension (4) Transient cerebral ischemia Current visit: Yes Status: Acute Possible TIA with expressive aphasia. Symptoms have now subsided. We will get MRI of the brain. Consider changing aspirin to Aggrenox for management if MRI is abnormal. Moderate risk for complications. Qualifiers: Transient cerebral ischemia type: other Qualified Code(s): G45.8 - Other transient cerebral ischemic attacks and related syndromes Internal Medicine - H&P: HPI Chief complaint: Difficulty finding words Admitted From: Emergency Dept Plans for Post Hospital Care: Home History of present illness: Ms. Thomas is a 71 year old female with history of CVA, hypertension, hyperlipidemia presented to the ER with complaints of difficulty finding words that began this morning. She woke up with these symptoms. When she went to bed last night, she was feeling slightly off balance but otherwise was doing well. She says she has been admitted here last month for dehydration and so she felt that she was dehydrated and drank more fluids. In the middle of the night she went to use the bathroom without any issues. This morning she woke up at around 7:30 AM and was having difficulty finding words. Her symptoms continued until the time she came to the ER after which they have subsided and she feels back to normal at this time. The whole episode lasted for about 3 hours. She felt nauseated initially but that has also improved. She denies any palpitations. No lightheadedness. No chest pain. No other focal weakness or numbness. During her prior stroke, she did not have any focal weakness, but had vision problems and some issues with her memory and confusion. Those symptoms have subsided in 2 weeks. Past Med Surg Social Fam HX - Past Medical History Attestation: Yes The following information was validated with the patient. Source: patient Medical history: CVA, GERD, hyperlipidemia, hypertension Psychiatric history: anxiety, depression - Past Surgical History Surgical History: breast surgery, , hysterectomy, other - Social History Smoking Status: Former smoker Smokeless Tobacco Status: No Alcohol use: none Drug use: none - Family History Mother Living Status: Hx Family Cancer: Yes (Lung CA, METS) Daughter Living Status: Still Living Hx Family Endocrine Disorder: Yes (DM) Son Living Status: Still Living Hx Family Cancer: Yes (Prostate) Internal Medicine - H&P: Meds Alprazolam [Xanax 0.5 MG Tablet] 0.5 mg PO TID PRN 08/06/16 [History] Aspirin [Lo-Dose Aspirin EC] 81 mg PO HS 08/06/16 [History] Atorvastatin [Lipitor] 40 mg PO HS 08/06/16 [History] Citalopram Hydrobromide [Citalopram HBr] 40 mg PO HS 08/06/16 [History] Loratadine [Allergy Relief] 10 mg PO HS 08/06/16 [History] Omeprazole [PriLOSEC] 20 mg PO QAM 08/06/16 [History] Trimethoprim 100 mg PO HS 08/06/16 [History] Allergies No Known Allergies Allergy (Verified 08/06/16 09:50) All Systems PM: A 10-system review of systems was performed and is negative for pertinent findings except as documented above in the HPI. - Constitutional Constitutional: no chills, no fever(s), no night sweats - EENT Eyes: no change in vision, no discharge, no pain, no photophobia Ears: no ear discharge, no ear pain, no tinnitus Nose, mouth and throat: no dysphagia, no nasal discharge, no neck pain, no sore throat - Cardiovascular Cardiovascular ROS IM: no chest pain, no diaphoresis, no dyspnea, no lightheadedness, no palpitations, no syncope - Respiratory Respiratory: no cough, no dyspnea, no wheezing, no excessive phlegm production - Gastrointestinal Gastrointestinal: nausea, no abdominal pain, no diarrhea, no hematemesis, no hematochezia, no melena, no vomiting - Genitourinary Genitourinary: no change in urinary stream, no dysuria, no flank pain, no hematuria - Musculoskeletal Musculoskeletal ROS IM: no numbness, no tingling - Integumentary Integumentary IM: no rash, no unusual bruising - Neurological Neurological ROS: abnormal speech, no confusion, no convulsions, no focal weakness, no numbness, no tingling, no tremor(s) - Hematologic/Lymphatic Hematologic/Lymphatic: no easy bruising - Constitutional Vitals: Temp Pulse Resp BP Pulse Ox 97.9 F 64 15 128/67 96 09/26/16 13:19 09/26/16 13:19 09/26/16 13:19 09/26/16 13:19 09/26/16 13:19 General appearance: Present: cooperative, A&O X 3, no acute distress, answers questions appropriately - Eye Eye exam: Present: EOMI, PERRL, conjuntiva pink, sclera anicteric - Neck Neck exam general surgery: Present: supple, trachea midline. Absent: lymphadenopathy - Respiratory Respiratory exam: Present: CTAB. Absent: accessory muscle use, rales, rhonchi, wheezes - Cardiovascular Cardiovascular exam: Present: RRR, +S1, +S2. Absent: diastolic murmur, gallop, rubs, systolic murmur - GI/Abdominal GI/Abdominal exam: Present: normal bowel sounds, soft, no peritoneal signs. Absent: distended, tenderness - Extremities Exam Extremities exam: Present: warm, radial pulses palpable and symetrical. Absent : calf tenderness, cyanotic, pedal edema - Neurological Exam Neurological exam: Present: CN II-XII intact, oriented X3, no focal deficits. Absent: pronater drift, facial droop, speech deficit - Skin Skin exam: Present: dry, intact Internal Med - H&P Results - Labs CBC & Chem 7: 09/26/16 10:21 09/26/16 10:21 Labs: Urine 09/26/16 Range/Units 13:03 Urine Color Yellow (Yellow) Urine Clarity Clear (Clear) Urine pH 6.0 (5.0-8.0) pH Units Ur Specific [place] 1.012 (1.010-1.025) Urine Protein Negative (Neg-Trace) mg/dL Urine Glucose (UA) Normal (Normal) mg/dL - Attending Attestation This document has been at least partially created by [employer] recognition technology by Dr. Rosales. Errors in grammar, wording or other phrases may exist. If errors are found after the documentation is signed, they will be addressed individually in the addendum section of this document when appropriate.
[2016-09-26] MEDS ORDERED: Acetaminophen 325 MG TABLET PO PRN (17:46)
[2016-09-26] MEDS: ALPRAZolam 0.5 MG TABLET PO PRN ×2 (20:04→23:32)
[2016-09-26] MEDS ORDERED: Aspirin Enteric Coated 81 MG Tablet PO SCH (21:00)
[2016-09-26] MEDS ORDERED: Loratadine 10 MG TABLET PO SCH (21:00)
[2016-09-26] MEDS ORDERED: (Trimethoprim [Trimethoprim] 100 MG) PO SCH (21:00)
[2016-09-27 05:23] LABS: Hemoglobin A1C 5.1 %
[2016-09-27] MEDS ORDERED: *HR* Heparin 5,000 UNIT/ML VIAL SQ SCH (12:07)
--- NOTE | 2016-09-27 13:50 | Neurology - Consult Note ---
Date of Encounter: 09/27/16 Time of Encounter: 13:46 Assessment and Plan (1) CVA (cerebral vascular accident) Current Visit: Yes Status: Acute MRI demonstrated acute infarct in left temporal lobe, which explains her expressive aphasia She recently had Echo and carotid done on 08/07/16 which were both unremarkable Will add Plavix 75 mg daily on top of her low dose ASA and Lipitor Her symptoms have completely resolved at this point, and she is cleared to be discharged from neurological standpoint Qualifiers: Qualified Code(s): I63.9 - Cerebral infarction, unspecified History of Present Illness Chief complaint: expressive aphasia HPI: Ms. Thomas is a 71 year old female who presents with "difficulty finding words" that started yesterday morning at 730 AM when she woke up. She states that she did not have any slurred speech, but could not find certain words and say them out loud. She states that the night before the symptoms started, she was slightly unsteady but was otherwise normal. Patient called her son who drove her to the emergency department and her symptoms resolved after about 4-5 hours. She denied any other symptoms including LOC, blurry vision, lightheadedness, headache, decreased hearing, focal weakness, facial droop. Of note, patient did have previous stroke roughly 7 years ago and is currently on aspirin and Lipitor. She reported having double vision for 2 weeks after the CVA but that has since resolved. She was admitted about 2 months ago with a syncopal episode but workup with echocardiogram and carotid ultrasound was negative and her condition was attributed to dehydration. Patient also has a history of hypertension, but has been without antihypertensives since 2 months ago as outpatient blood pressure checks were normal. She is eager to go home as she has a trip to [place] this . Past Med Surg Social Fam HX - Past Medical History Medical history: CVA, GERD, hyperlipidemia, hypertension Psychiatric history: anxiety, depression - Past Surgical History Surgical History: breast surgery, , hysterectomy, other - Social History Smoking Status: Former smoker Smokeless Tobacco Status: No Alcohol use: none Drug use: none - Family History Mother Living Status: Hx Family Cancer: Yes (Lung CA, METS) Daughter Living Status: Still Living Hx Family Endocrine Disorder: Yes (DM) Son Living Status: Still Living Hx Family Cancer: Yes (Prostate) Medications and Allergies Alprazolam [Xanax 0.5 MG Tablet] 0.5 mg PO TID PRN 08/06/16 [History] Aspirin [Lo-Dose Aspirin EC] 81 mg PO HS 08/06/16 [History] Atorvastatin [Lipitor] 40 mg PO HS 08/06/16 [History] Citalopram Hydrobromide [Citalopram HBr] 40 mg PO HS 08/06/16 [History] Loratadine [Allergy Relief] 10 mg PO HS 08/06/16 [History] Omeprazole [PriLOSEC] 20 mg PO QAM 08/06/16 [History] Trimethoprim 100 mg PO HS 08/06/16 [History] Ranitidine HCl [Acid Guest History Clerk] 150 mg PO BID PRN 09/26/16 [History] Allergies No Known Allergies Allergy (Verified 08/06/16 09:50) All Systems: A 10-system review of systems was performed and is negative for pertinent findings except as documented above in the HPI. - Constitutional Constitutional ROS IM: no frequent falls, no headache(s), no weakness - Nose, Mouth, Throat Nose, mouth and throat: no dizziness, no dysphagia - Cardiovascular Cardiovascular ROS IM: no chest pain, no dyspnea, no lightheadedness, no syncope - Respiratory Respiratory IM: no dyspnea - Gastrointestinal Gastrointestinal: nausea, no abdominal pain, no diarrhea, no melena, no vomiting - Genitourinary Genitourinary ROS: no urinary incontinence - Musculoskeletal Musculoskeletal ROS IM: no numbness, no stiffness, no tingling - Neurological Neurological ROS: abnormal speech, no confusion, no frequent falls, no numbness , no sensory deficit, no syncope, no tingling, no tremor(s), no weakness Physical Examination - Vital Signs Vital Signs: Initial Vital Signs Temp Pulse Resp BP Pulse Ox 98.3 F 67 16 134/79 97 09/26/16 09:52 09/26/16 09:52 09/26/16 09:52 09/26/16 09:52 09/26/16 09:52 - Constitutional General appearance: comfortable - Neurologic Sensorimotor examination: intact Detailed motor examination: full strength in all major muscle groups Motor examination - right side: 5/5: deltoids, biceps, triceps, wrist flexion, wrist extension, cutter helper, hip flexors, tibialis Anterior, quadriceps Motor examination - left side: 5/5: deltoids, biceps, triceps, wrist flexion, wrist extension, hip flexors, cutter helper, quadriceps, tibialis Anterior Detailed sensory examination: intact Reflex and gait examination: intact Reflexes: Biceps: 2+, Triceps: 2+, Brachioradialis: 2+, Patella: 2+ Mental Status Examination: awake, alert, oriented to person, oriented to place, oriented to time, follows commands appropriately, answers questions appropriately, no agnosia, no aphasia, no aproxia Cranial nerve examination: PERRL, EOMI, visual quintero intact, corneal reflexes brisk symmetrically, sensory to face intact, mastication intact, no facial asymmetry is present, no dysarthria, hearing is intact symmetrically, soft palate elevates bilaterally upon phonation, gag reflex intact, flexes SCM and trapezius muscles symmetrically with full power, tongue protrudes midline, no atrophy or facial fasiculations present Cerebellar examination: no dysmetria, performs finger to nose and heel to powers symmetrically without ataxia, no gait ataxia, no truncal ataxia, no difficulty with rapid alternating movements Results - Laboratory Findings CBC and BMP: 09/26/16 10:21 09/26/16 10:21 Abnormal lab findings: Abnormal lab results RBC 3.63 M/mcL (3.82-4.97) L 09/26/16 10:21 MPV 8.8 fL (9.4-12.4) L 09/26/16 10:21 APTT 25.7 Seconds (26.0-36.0) L 09/26/16 10:21 Chloride 111 mEq/L (98-109) H 09/26/16 10:21 Creatinine 1.15 mg/dL (0.57-1.11) H 09/26/16 10:21 Est GFR ( Amer) 56 (> 60) L 09/26/16 10:21 Est GFR (Non-Af Amer) 46 (> 60) L 09/26/16 10:21 Triglycerides 160 mg/dL (< 150) H 09/27/16 04:45 LDL Cholesterol, Calc 109 mg/dL (0-99) H 09/27/16 04:45 VLDL Cholesterol, Calc 32 mg/dL (< 31) H 09/27/16 04:45 HDL Cholesterol 35 mg/dL (40-59) L 09/27/16 04:45 Cholesterol/HDL Ratio 5.0 (0-4.9) H 09/27/16 04:45 Vitamin B12 < 109 pg/mL (213-816) L 09/27/16 04:45 Ur Leukocyte Esterase Small (Negative) H 09/26/16 13:03 Urine Microscopic WBC 3-5 per hpf (0-3) H 09/26/16 13:03 Ur Squamous Epith Cells Many per lpf (None-Few) H 09/26/16 13:03 Ur Culture Indicated? YES (NO) A 09/26/16 13:03 Consult Discharge Plan - Plan Instructions: Ischemic Stroke (GEN) Referrals: Kumar Rodriguez Jr, MD [Primary Care Provider] -
[2016-09-27] MEDS ORDERED: Famotidine 20 MG TABLET PO PRN (14:57)
[2016-09-27 15:44] VITALS: BP 126/78
--- NOTE | 2016-09-27 16:38 | Discharge Summary ---
Date of Encounter: 09/27/16 Time of Encounter: 14:00 - Discharge Diagnosis (1) CVA (cerebral vascular accident) Priority: Primary Status: Acute Comments: Patient with acute infarct left temporal lobe. Her expressive aphasia resolved while admitted. She remained asymptomatic. Neurology on board, will initiate Plavix and have her follow up outpatient. (2) Expressive aphasia Priority: Primary Status: Resolved (3) CKD (chronic kidney disease) stage 3, GFR 30-59 ml/min Priority: Secondary Status: Chronic Comments: Stable and consistent with her baseline, follow up outpatient. (4) Hyperlipidemia Priority: Secondary Status: Chronic Comments: Borderline abnormal lipid panel, recommend low-cholesterol diet and continuing her statin Qualifiers: Hyperlipidemia type: mixed hyperlipidemia Qualified Code(s): E78.2 - Mixed hyperlipidemia (5) Hypertension Priority: Secondary Status: Inactive Comments: Controlled without the use of antihypertensive medications. Recommend daily blood pressure checks at home, keeping a log, and following up outpatient. Antihypertensive medication is not indicated upon discharge. Qualifiers: Hypertension type: essential hypertension Qualified Code(s): I10 - Essential (primary) hypertension (6) DVT prophylaxis Priority: Primary Status: Acute Comments: Subcutaneous heparin while admitted - Discharge Medications Prescriptions: Clopidogrel [Plavix] 75 mg PO DAILY #30 tablet Home Medications: Alprazolam [Xanax 0.5 MG Tablet] 0.5 mg PO TID PRN 08/06/16 [History] Aspirin [Lo-Dose Aspirin EC] 81 mg PO HS 08/06/16 [History] Atorvastatin [Lipitor] 40 mg PO HS 08/06/16 [History] Citalopram Hydrobromide [Citalopram HBr] 40 mg PO HS 08/06/16 [History] Loratadine [Allergy Relief] 10 mg PO HS 08/06/16 [History] Omeprazole [PriLOSEC] 20 mg PO QAM 08/06/16 [History] Trimethoprim 100 mg PO HS 08/06/16 [History] Ranitidine HCl [Acid Team Physician] 150 mg PO BID PRN 09/26/16 [History] Clopidogrel [Plavix] 75 mg PO DAILY #30 tablet 09/27/16 [Rx] Allergies/Adverse Reactions: Allergies No Known Allergies Allergy (Verified 08/06/16 09:50) Procedures/tests Complete & Pending: Procedures Performed prior 72 hours Category Date Time Status MR head/brain wo con [MR] Routine MRI 09/27/16 00:01 Completed ECG 12 lead ECG [ECG] Routine Y 09/26/16 10:01 Completed Date of admission: 09/26/16 11:34 Primary care physician: Kumar Rodriguez Jr, MD Consults: 09/26/16 12:51 Consult to Occupational Therapy [CONS] Routine Comment: Evaluate, develop and implement POC Consult to Physical Therapy [CONS] Routine Comment: Evaluate, develop and implement POC 09/27/16 13:06 Consult to Neurology [CONS] Routine Consulting Provider: Neurology [facility] Reason for Consult: New onset expressive aphagia. MS + acute infarct Time Notified: 13:06 Call Completed: Yes Discharging clinician: Ashley Perdomo Anticipated date of discharge: 09/27/16 - Patient Status Disposition: Home, Self-Care Condition: Good Functional capacity at discharge: independent ambulation Overall status at discharge: patient is back to baseline - Discharge Instructions Instructions: Ischemic Stroke (GEN) Follow Up With: Kumar Rodriguez Jr, MD [Primary Care Provider] - 10/05/16 1:45 pm Additional Instructions: Follow-up with primary care provider as scheduled - Diet and Activity Activity: increase activity as tolerated Diet: low fat, low cholesterol, low salt diet Hospital course: Ms. Thomas is a 71 year old female with past medical history of prior CVA, GERD , hypertension, hyperlipidemia, anxiety, depression. Patient presented to the emergency department chief complaint difficulty finding her words that began on the morning of presentation. Patient stating she woke up with those symptoms. She states that on the night before when she was going to bed, she felt slightly off balance but was otherwise normal. Patient was able to get up and use the bathroom in the middle of the night without any issues. When she woke up at 7:30 in the morning, she was having difficulty finding her words prompting her presentation to the emergency department. This episode lasted approximately 3 hours. Patient also stating she was nauseated initially but with no vomiting. Workup in the emergency department unremarkable. Chest x- ray negative. Head CT negative. Patient was admitted to the hospitalist service for further evaluation and management. Patient had recent echocardiograms and carotid duplex that were unremarkable. Brain MRI revealing acute infarct to the left temporal lobe. Patient remained asymptomatic throughout this admission with no new focal neurological weaknesses; speech was fluid. She was seen and evaluated by neurology who recommended adding Plavix to her regimen. Regarding risk factor modification, her blood pressure is controlled without the use of antihypertensive medications. Lipid panel unremarkable and she is already on a statin. No diabetes-A1c 5.1%. She is discharged home in stable condition with close outpatient follow-up recommended. ITS Impressions Chest X-Ray 09/26/16 10:13 IMPRESSION: No acute abnormality. D/ / 09/26/2016 11:05:33 Bertrand Barker MD / Luciana Hagen Interpreting Provider: Bertrand Barker MD Head CT 09/26/16 10:13 IMPRESSION: 1. No acute intracranial abnormality. D/ / Braxton Delong MD / Braxton Delong MD Interpreting Provider: Braxton Delong MD Brain MRI 09/27/16 00:01 IMPRESSION: 1. There appears to be a punctate acute infarct within the mesial left temporal lobe. 2. No evidence of mass effect or midline shift. 3. Normal global parenchymal volume loss with minimal chronic microvascular ischemic change. 4. Chronic lacunar infarcts are seen within the right thalamus and left cerebellum. D/ / Poli Pedro MD / Poli Pedro MD Interpreting Provider: Poli Pedro MD Echocardiogram from 08/07/16 impressions: LVEF 60-65%. Normal left ventricular size and systolic function. There is evidence of mild diastolic dysfunction of the left ventricle. Normal right ventricular size and function. Mild tricuspid regurgitation. No pulmonary hypertension. Carotid duplex impressions from 08/07/16: Findings: Bilateral carotid systems are essentially normal. - Time Spent with Patient Total time spent providing and/or coordinating discharge services: - Constitutional Vitals: Temp Pulse Resp BP Pulse Ox 98.1 F 70 14 126/78 93 09/27/16 15:37 09/27/16 15:37 09/27/16 15:37 09/27/16 15:37 09/27/16 15:37 General appearance: Present: cooperative, A&O X 3, no acute distress, answers questions appropriately - Head Head exam: Present: atraumatic, normocephalic - Eye Eye exam: Present: EOMI, PERRL, conjuntiva pink, sclera anicteric Pupils: Present: PERRL - Neck Neck exam general surgery: Present: supple, trachea midline. Absent: lymphadenopathy - Respiratory Respiratory exam: Present: CTAB. Absent: accessory muscle use, rales, respiratory distress, rhonchi, wheezes - Cardiovascular Cardiovascular exam: Present: RRR, +S1, +S2. Absent: diastolic murmur, gallop, rubs, systolic murmur - GI/Abdominal GI/Abdominal exam: Present: normal bowel sounds, soft, no peritoneal signs. Absent: distended, tenderness - Extremities Exam Extremities exam: Present: warm, radial pulses palpable and symetrical. Absent : calf tenderness, cyanotic, pedal edema - Neurological Exam Neurological exam: Present: alert, CN II-XII intact, normal gait, oriented X3, no focal deficits, strengths equal and symetr throughout. Absent: pronater drift, facial droop, speech deficit - Expanded Neurological Exam Patient oriented to: Present: person, place, time Speech: Present: fluid speech Neuro motor strength exam: LUE: 5, RUE: 5, LLE: 5, RLE: 5 Coma Scale Eye Opening: Spontaneous Coma Scale Motor Response: Obeys Commands Coma Scale Verbal Response: Oriented Coma Scale Total: 15 - Skin Skin exam: Present: dry, intact, normal color, warm
--- NOTE | 2016-09-27 17:17 | Electrocardiograph Report ---
[place] [id number] Test Date: 2016-09-26 Pat Name: Jacinta Thomas Department: 104 Room: 3B Gender: F [employer] Sales Representative: : 1945 Requested By: Ashley Perdomo Order Number: [id number] Reading MD: Merari Mathis Measurements Intervals Harvey Rate: 66 P: 33 DC: 181 QRS: 12 QRSD: 89 T: 11 QT: 397 QTc: 410 Interpretive Statements SINUS RHYTHM INTERPRETATION BASED ON A DEFAULT AGE OF 40 YEARS Electronically Signed On 09-27-2016 17:15:40 EDT by Merari Mathis
== END 2016-09-27 17:20 | disposition home or self-care (01) ==
LOC: 3BNU 09:47 → EMEROO 09:47 → 3BNU 13:00
PROVIDERS: ADMIT Internal Medicine; ATTEND Nurse Practitioner Family

== ENCOUNTER 2020-04-08 13:36 | Observation (INO) ==
[2020-04-08] MEDS ORDERED: Isovue-370 500 ML BOTTLE IVP ONE (13:49)
[2020-04-08 13:55] LABS: Hematocrit 42.6 % (35.3-44.9); Mean Corpuscular HGB Conc 32.9 g/dL (31.6-35.5); Mean Corpuscular Hemoglobin 29.8 pg (28.0-33.3); Mean Corpuscular Volume 90.6 fL (83.0-100.0); Mean Platelet Volume 8.5 fL (9.4-12.4); Platelet Count 220 K/mcL (140-400); Red Cell Distribution Width 12.3 % (11.5-14.5); White Blood Count 7.4 K/mcL (4.3-11.1)
[2020-04-08 14:02] LABS: INR 1.1; Prothrombin Time 12.2 Seconds (9.4-12.1)
[2020-04-08 14:05] LABS: Activated Partial Thrombo Time 25.5 Seconds (26.0-36.0)
[2020-04-08 14:13] LABS: BUN/Creatinine Ratio 19 (6-26); Blood Urea Nitrogen 19 mg/dL (8-23); Calcium 9.4 mg/dL (8.6-10.3); Carbon Dioxide 23 mEq/L (23-29); Chloride 107 mEq/L (98-107); Glucose 91 mg/dL (70-105); Osmolality,Calculated 288 (280-300); Sodium 138 mEq/L (136-145); eGFR For African Americans > 60 (> 60); eGFR For Non-African Americans 55 (> 60)
[2020-04-08 14:14] LABS: Troponin I < 0.03 ng/mL (< 0.04)
[2020-04-08] MEDS ORDERED: Mag Hydrox/Al Hydrox/Simeth 30 ML UDC PO PRN (15:23)
[2020-04-08] MEDS ORDERED: MOM Conc 10 ML UD.LIQ PO PRN (15:23)
[2020-04-08] MEDS ORDERED: Acetaminophen 325 MG TABLET PO PRN (15:23)
[2020-04-08] MEDS ORDERED: *HR* HYDROcodone/Acet 5/325 mg TABLET PO PRN (15:23)
[2020-04-08] MEDS ORDERED: *HR* Promethazine 25 MG/ML VIAL IVP PRN (15:23)
[2020-04-08] MEDS ORDERED: Naloxone 0.4 MG/ML INJ IVP PRN (15:23)
[2020-04-08] MEDS ORDERED: Ondansetron 4 MG/2 ML VIAL IVP PRN (15:23)
[2020-04-08] MEDS ORDERED: Perflutren Lipid Microsphere 1.3 ML in 0.9 % Sodium Chloride 8.7 ML IVP PRN (15:24)
[2020-04-08] MEDS: *HR* Heparin 5,000 UNIT/ML VIAL SQ SCH (17:50)
[2020-04-08] MEDS ORDERED: *HR* LORazepam 2 MG/ML VIAL IVP ONE (18:00)
[2020-04-08] MEDS ORDERED: Aspirin Enteric Coated 81 MG Tablet PO SCH (21:00)
[2020-04-09 01:52] LABS: Alanine Aminotransferase 11 Units/L (7-52); Albumin 3.8 g/dL (3.5-5.7); Albumin/Globulin Ratio 1.7 (1.1-2.2); Alkaline Phosphatase 71 Units/L (34-104); Aspartate Amino Transferase 10 Units/L (13-39); BUN/Creatinine Ratio 16 (6-26); Bilirubin,Total 0.6 mg/dL (0.3-1.0); Blood Urea Nitrogen 16 mg/dL (8-23); Calcium 9.4 mg/dL (8.6-10.3); Carbon Dioxide 26 mEq/L (23-29); Chloride 107 mEq/L (98-107); Chol/HDL Ratio 7.8 (0-4.9); Cholesterol 298 mg/dL (< 200); Globulin 2.2 g/dL (2.4-3.5); Glucose 91 mg/dL (70-105); HDL Cholesterol 38 mg/dL (40-59); LDL Cholesterol,Calculated 209 mg/dL (< 100); Osmolality,Calculated 289 (280-300); Potassium 4.3 mEq/L (3.5-5.1); Sodium 139 mEq/L (136-145); Triglycerides 257 mg/dL (< 150); eGFR For African Americans > 60 (> 60); eGFR For Non-African Americans 53 (> 60)
[2020-04-09 01:56] LABS: Basophils % 0.8 %; Eosinophils # 0.2 K/mcL (0.0-0.6); Eosinophils % 4.2 %; Hematocrit 37.7 % (35.3-44.9); Immature Granulocytes % 0.8 % (0-4); Lymphocytes # 1.6 K/mcL (0.6-4.6); Lymphocytes % 32.3 %; Mean Corpuscular HGB Conc 32.9 g/dL (31.6-35.5); Mean Corpuscular Hemoglobin 30.1 pg (28.0-33.3); Mean Corpuscular Volume 91.5 fL (83.0-100.0); Monocytes # 0.4 K/mcL (0.0-1.3); Monocytes % 7.8 %; Neutrophils # 2.7 K/mcL (1.6-8.9); Platelet Count 190 K/mcL (140-400); Red Blood Count 4.12 M/mcL (3.82-4.97); Red Cell Distribution Width 12.3 % (11.5-14.5); Segmented Neutrophils % 54.1 %
[2020-04-09 02:07] LABS: Hemoglobin 12.4 g/dL (11.5-15.4)
[2020-04-09] MEDS: *HR* Heparin 5,000 UNIT/ML VIAL SQ SCH (05:18)
[2020-04-09 06:28] VITALS: BP 159/81
== END 2020-04-09 10:47 | disposition home or self-care (01) ==
LOC: EMEROOARM 13:36 → 3BNU 13:36
PROVIDERS: ADMIT Internal Medicine; ATTEND Internal Medicine